=== PATIENT | female | born 1970 | race Two or more races ===

== ENCOUNTER 2023-02-02 13:48 | Outpatient (CLI) | payer OTHER | END 2023-02-02 13:55 | disposition home or self-care (01) | LOC: NUCLEAR 13:48 | PROVIDERS: ATTEND Urology | DX: C64.2 Malignant neoplasm of left kidney, except renal pelvis (principal) ==

== ENCOUNTER 2023-09-13 13:26 | Outpatient (CLI) | payer OTHER | END 2023-09-13 13:33 | disposition home or self-care (01) | LOC: SONOGRAMA 13:26 | PROVIDERS: ATTEND Urology | DX: C64.1 Malignant neoplasm of right kidney, except renal pelvis (principal) ==

== ENCOUNTER 2024-04-18 07:55 | Day surgery (SDC) | payer OTHER ==
[2024-04-12 14:52] VITALS: BP 128/86
[~2024-04-18] VITALS: Ht 167.6 cm; Wt 62.6 kg
[~2024-04-18 07:55] MED LIST: MULTIVITAMINAS; PROMETRIUM200 MG
[2024-04-18] MEDS ORDERED: POVIDONE-IODINE 118 ML BOTT TOP ONE (14:30)
[2024-04-18] MEDS ORDERED: MORPHINE SULFATE 4 MG/ML VIAL IV PRN (15:00)
[2024-04-18] MEDS ORDERED: MORPHINE SULFATE 4 MG/ML VIAL IV ONE ×2 (15:15→17:05)
[2024-04-18] MEDS ORDERED: ONDANSETRON HCL 2 MG/ML VIAL IV ONE (16:25)
== END 2024-04-18 20:30 | disposition home or self-care (01) ==
LOC: CIR.AMB 07:55
PROVIDERS: ATTEND Obstetrics & Gynecology
DX: D25.0 Submucous leiomyoma of uterus (principal); N95.0 Postmenopausal bleeding; Z88.0 Allergy status to penicillin; Z88.6 Allergy status to analgesic agent